=== PATIENT | female | born 1950 | race Caucasian/White ===

== ENCOUNTER → 2019-09-13 09:50 | Outpatient (CLI) | payer MEDICARE, OTHER, SELFPAY ==
--- NOTE | ~2019-09-13 | CT_ITS ---
EXAMINATION: CT abdomen pelvis w con INDICATION: Right upper quadrant flank pain at site of prior ileostomy, history of partial colectomy TECHNIQUE: Computed tomographic images of the abdomen and pelvis were obtained after the administrati on of 100 cc of Omnipaque 350 intravenous contrast. The dose-length product (DLP) was 1097.73 mGy-cm. Automated exposure control and iterative reconstruction technique were employed. COMPARISON: None available FINDINGS: Minimal dependent atelectasis is present in the lung bases. The heart size is normal. Cysts of the liver measure up to 3.0 cm in the left hepatic lobe. The spleen, pancreas, gallbladder, and a drenal glands are normal. There is a 2.1 cm soft tissue density mass of the left kidney upper pole. C ysts measuring up to 10 mm are noted in the right kidney lower pole. There is calcified atheroscleros is of the aorta and many of the other arteries. No pathologically enlarged abdominal or pelvic lymph nodes are identified. There is no free intraperitoneal gas or evidence of bowel obstruction. There ar e surgical changes in the right lower quadrant as well as the rectum. There is a moderate-sized, wide mouth ventral hernia of the right lower abdominal wall. Small, fat-containing umbilical and periumbil ical hernias are also noted. There is mild lumbar spondylosis. IMPRESSION: 1. Fat-containing ventral hernia of the right lower abdominal wall and small fat-containing umbilical and periumbilical hernias. 2. Indeterminate mass of the left kidney upper pole. Further evaluation by MR or CT without and with contrast is recommended. Reviewed, dictated and finalized at location A. IMPRESSION: 1. Fat-containing ventral hernia of the right lower abdominal wall and small fa t-containing umbilical and periumbilical hernias. 2. Indeterminate mass of the left kidney upper pole. Further evaluation by MR o r CT without and with contrast is recommended.
[2019-09-13 10:13] LABS: Estimated Glomerular Filt Rate 55
== END ==
PROVIDERS: PCP Family Medicine; Visit Provider Family Medicine
DX: R10.11 Right upper quadrant pain (principal); K43.9 Ventral hernia without obstruction or gangrene; K42.9 Umbilical hernia without obstruction or gangrene; N28.89 Other specified disorders of kidney and ureter
CPT/HCPCS: 36415; 74177; Q9967